=== PATIENT | male | born 1975 | race Caucasian/White ===

== ENCOUNTER 2019-12-03 20:16 | Emergency (ER) | payer OTHER, MEDICAID ==
[~2019-12-03] VITALS: Ht 182.9 cm; Wt 110.2 kg
[2019-12-03] MEDS ORDERED: LISI10TA5 PO (20:34)
[2019-12-03] MEDS ORDERED: GABA600T12 PO (20:34)
[2019-12-03] MEDS ORDERED: KETOROLAC TROMETHAMINE 60 MG INJ IM ONE (21:00)
[2019-12-03] MEDS ORDERED: IV NORMAL SALINE 1000 ML BAG IV ONE (21:00)
[2019-12-03] MEDS ORDERED: KETOROLAC TROMETHAMINE 30 MG INJ IVP ONE (21:00)
[2019-12-03] MEDS ORDERED: KETOROLAC TROMETHAMINE 30 MG INJ ONE ×2 (21:03→21:09)
[2019-12-03 21:08] LABS: BASOPHILS % (AUTO) 0.2 % (0.0-2.0); EOSINOPHILS # (AUTO) 0.1 K/uL (0.0-0.7); EOSINOPHILS % (AUTO) 0.6 % (0.0-7.0); HEMATOCRIT 39.9 % (36.7-47.1); HEMOGLOBIN 13.3 g/dL (12.5-16.3); LYMPHOCYTES # (AUTO) 1.4 K/uL (20.0-40.0); LYMPHOCYTES % (AUTO) 15.5 % (20.5-51.5); MEAN CORPUSCULAR HEMOGLOBIN 29.2 uug (23.8-33.4); MEAN CORPUSCULAR HGB CONC 34 g/dL (32.5-36.3); MEAN CORPUSCULAR VOLUME 87.2 fL (73.0-96.2); MONOCYTES # (AUTO) 0.6 K/uL (2.0-10.0); MONOCYTES % (AUTO) 6.5 % (0.0-11.0); NEUTROPHILS # (AUTO) 7.1 K/uL (1.8-8.9); NEUTROPHILS % (AUTO) 77.2 % (38.5-71.5); PLATELET COUNT (AUTO) 251 K/uL (152-348); RED BLOOD CELL COUNT(AUTO) 4.57 MIL/uL (4.06-5.63); WHITE BLOOD COUNT (AUTO) 9.2 K/uL (3.6-10.2)
--- NOTE | 2019-12-03 21:09 | NUR ---
Patient taken to CT.
[2019-12-03 21:16] LABS: CREATININE 1.4 mg/dL (0.6-1.3); POTASSIUM 4.1 mmol/L (3.5-5.1)
[2019-12-03] MEDS ORDERED: IV NS 1000 ML 1,000 ML IV ONE (22:00)
--- NOTE | 2019-12-03 22:37 | NUR ---
Patient discharged to home in stable condition. Written and verbal after care instructions given. Patient verbalizes understanding of instructions. Stressed follow up or return to ER for worsening s/s. Ambulated from ER with stable gait. All belongings with patient.
[2019-12-03 22:38] VITALS: BP 131/77
== END 2019-12-03 22:38 | disposition home or self-care (01) ==
LOC: ER 20:18
DX: R20.0 Anesthesia of skin (principal); M79.661 Pain in right lower leg; N28.9 Disorder of kidney and ureter, unspecified
CPT/HCPCS: 36415; 70450; 80048; 85025; 85730; 93005; 93971; 96360; 96372; 99285; J1885 ×2; J7030

== ENCOUNTER 2019-12-07 07:43 | Emergency (ER) | payer OTHER, MEDICAID ==
[~2019-12-07] VITALS: Ht 182.9 cm; Wt 111.6 kg
[~2019-12-07 07:43] MED LIST: GABA600T12 PO; LISI10TA5 PO
--- NOTE | 2019-12-07 07:55 | NUR ---
Dr [email or web address], MSE in progress.
[2019-12-07] MEDS ORDERED: ESCI5TAB PO (08:01)
--- NOTE | 2019-12-07 08:01 | NUR ---
Our EKG machine is non-functional, is aware. BIOMED and nursing artificial flowers supervisor notified. Resp therapy department notified re: "Can we borrow their EKG machine?"
[2019-12-07 08:21] LABS: BASOPHILS % (AUTO) 0.4 % (0.0-2.0); EOSINOPHILS # (AUTO) 0.1 K/uL (0.0-0.7); EOSINOPHILS % (AUTO) 1.6 % (0.0-7.0); HEMATOCRIT 39.2 % (36.7-47.1); HEMOGLOBIN 13.1 g/dL (12.5-16.3); LYMPHOCYTES # (AUTO) 1.4 K/uL (20.0-40.0); LYMPHOCYTES % (AUTO) 23.5 % (20.5-51.5); MEAN CORPUSCULAR HEMOGLOBIN 29.3 uug (23.8-33.4); MEAN CORPUSCULAR HGB CONC 34 g/dL (32.5-36.3); MEAN CORPUSCULAR VOLUME 87.3 fL (73.0-96.2); MONOCYTES # (AUTO) 0.4 K/uL (2.0-10.0); MONOCYTES % (AUTO) 7.3 % (0.0-11.0); NEUTROPHILS # (AUTO) 4.1 K/uL (1.8-8.9); NEUTROPHILS % (AUTO) 67.2 % (38.5-71.5); PLATELET COUNT (AUTO) 241 K/uL (152-348); RED BLOOD CELL COUNT(AUTO) 4.48 MIL/uL (4.06-5.63); WHITE BLOOD COUNT (AUTO) 6.1 K/uL (3.6-10.2)
[2019-12-07 08:29] LABS: POTASSIUM 4.1 mmol/L (3.5-5.1)
[2019-12-07 08:45] LABS: BILIRUBIN,DIRECT 0.1 mg/dL (0.0-0.2); BILIRUBIN,TOTAL 0.5 mg/dL (0.2-1.0)
--- NOTE | 2019-12-07 08:49 | NUR ---
Patient is resting comfortably in bed with eyes closed, NAD.
--- NOTE | 2019-12-07 09:40 | NUR ---
"Can I have something to put me to sleep?" per patient. MD notified.
--- NOTE | 2019-12-07 10:40 | NUR ---
Dr [email or web address], for repeat troponin by 1115.
--- NOTE | 2019-12-07 11:23 | NUR ---
Patient used the bathroom 2x. Patient said that he had black stools, MD is aware. No black stools seen in the toilet. Listening ear and assurances given.
--- NOTE | 2019-12-07 11:47 | NUR ---
Patient is using his personal electronic device again, respiration:easy . Patient keeps on asking for "something to put him to sleep", MD is aware, for disposition.
--- NOTE | 2019-12-07 12:04 | NUR ---
Patient is AOx4, medically cleared for discharge. Copies of all the tests results provided. Patient said that he does not want to leave the ER, Dr Gil is aware. eyelet maker hCao notified.
--- NOTE | 2019-12-07 12:16 | NUR ---
Patient discharged to home in stable condition and steady gait. Written and verbal after care instructions, sleep medicine doctor referral, & copies of all the tests' results given to patient. Patient verbalized understanding & compliance of instructions. Stressed follow up with his psychiatrist and PMD was emphasized or return to ER for worsening s/s.
== END 2019-12-07 12:17 | disposition home or self-care (01) ==
LOC: ER 07:43
DX: R07.9 Chest pain, unspecified (principal); R20.2 Paresthesia of skin; F41.9 Anxiety disorder, unspecified; R00.2 Palpitations; Z82.3 Family history of stroke; Z82.49 Family history of ischemic heart disease and other diseases of the circulatory system
CPT/HCPCS: 36415; 70030-TC; 71045; 85025; 93005; A4663

== ENCOUNTER 2019-12-30 17:33 | Emergency (ER) | payer OTHER ==
[~2019-12-30] VITALS: Ht 182.9 cm; Wt 112.5 kg
[~2019-12-30 17:33] MED LIST changes: +ESCI5TAB PO
[2019-12-30] MEDS ORDERED: IBUPROFEN 800 MG TABLET PO ONE (19:30)
[2019-12-30] MEDS ORDERED: IBUPROFEN 800 MG TABLET ONE (19:34)
--- NOTE | 2019-12-30 21:45 | NUR ---
DR COUGHLIN MADE PATIENT AWARE OF TEST RESULTS.
[2019-12-30 21:55] VITALS: BP 136/78
--- NOTE | 2019-12-30 21:55 | NUR ---
Patient discharged to home in stable condition. Written and verbal after care instructions given. Patient verbalizes understanding of instructions. Stressed follow up or return to ER for worsening s/s.
== END 2019-12-30 21:55 | disposition home or self-care (01) ==
LOC: ER 17:35
DX: I80.8 Phlebitis and thrombophlebitis of other sites (principal); M79.622 Pain in left upper arm; F41.9 Anxiety disorder, unspecified; Z82.3 Family history of stroke; Z82.49 Family history of ischemic heart disease and other diseases of the circulatory system; I10 Essential (primary) hypertension
CPT/HCPCS: A4663